=== PATIENT | male | born 1980 | race Caucasian/White ===

== ENCOUNTER 2021-02-11 14:52 | Outpatient (CLI) | payer SELFPAY ==
[2021-02-11 16:09] LABS: Semen Viscosity Not Increased (Not Increa.); Volume Semen 2.5 mL (1.5-5.0)
[2021-02-11 16:10] LABS: Liquefaction Semen Complete in 30 min. (<30 minutes); Semen Color Opaque (Grey-opaque); Semen Immotility 10 %; Semen Morphology Result to Follow; Semen Non-Progressive Motility 10 %; Semen Progressive Motility 80 % (>32); Semen Total Motility 90 (>40% (PM+NP)); Sperm Count 18.7 Mil/mL (60-150 million/mL)
[2021-02-16 19:46] LABS: Fructose, Semen 253 mg/dL (150-600)
== END 2021-02-11 14:53 | disposition home or self-care (01) ==
PROVIDERS: Visit Provider Advanced Practice Midwife
DX: Z30.09 Encounter for other general counseling and advice on contraception (principal)
CPT/HCPCS: 82757; 88160; 89320

== ENCOUNTER 2023-02-07 09:16 | Outpatient (CLI) | payer BC, SELFPAY ==
--- NOTE | 2023-03-01 14:16 | WPDSLEEPSTUD ---
Sleep Study Date of Study: 02/07/23 Ordering Provider: Richard Stone MD Interpreting Physician: Bernadette Goodrich MD Sleep Study Type: Split Polysomnogram Height: 1.8 m Weight: 154.221 kg Body Mass Index: 47.4 Neck Circumference (inches): 20.5 [place]: 5 Reason for Sleep Study Snoring, Sleep History Erick Comer is a 42-year-old man with complaints of snoring and high blood pressure, recently started taking metoprolol. He occasionally awakens from sleep feeling short of breath. He o occasionally wakes at night with heartburn, belching or coughing.??He constant snores, and constantly snores loudly enough that others complain. He occasionally has trouble sleeping when he has a cold. He never wakes up gasping for breath during the night. He rarely has breathing problems at night. He occasional sweats excessively at night. He occasionally notices his heart pounding or beating irregularly during the night. He rarely falls asleep during the day. He rarely falls asleep involuntarily, never falls asleep while driving. He never experiences loss of muscle tone with strong emotion. He never has daytime difficulty at work due to excessive sleepiness, he is a senior mobile developer. He never feels paralyzed on waking or falling asleep. He never experiences vivid dreams upon waking or falling asleep. He never feels afraid of going to sleep. He never has nightmares. He rarely recalls his dreams. He occasionally has thoughts racing through his mind. He occasional feels sad or depressed. He occasionally feels anxiety. He occasionally notices parts of his body jerking. He occasionally kicks during the night. He occasionally feels crawling or aching feelings in his legs. He rarely feels leg pain at night. He never has morning jaw pain, never grinds his teeth at night. He rarely feels bothered by pain during the day, never awakened by pain during the night. He occasionally wakes up feeling stiff in the morning, and he rarely wakes feeling sore or achy, occasionally awakens with pain in his neck, spine, or joints. Normal bedtime is between 10:00 p.m. and 11:00 p.m. falling asleep within 5 minutes, waking between 3 and 4 times during the night to take the dog out, use the bathroom, and is able to return to sleep within 10-20 minutes, sometimes longer. These events occur in the line staker hours. His normal wake time is between 7 and 8:00 a.m.. On weekends, bedtime is later, 1 hour, going to bed between 11:00 p.m. and 12 midnight, waking between 8:00 a.m. and 9:00 a.m. He does not take naps. A short nap lasting 10-15 minutes is not refreshing. Sometimes he feels refreshed on waking. He feels better in the afternoon compared to other times of day. Habits:??Tobacco: He uses E-cigarettes daily. Caffeine: 32 oz a day. Alcohol: 10-15 alcoholic beverages per week. Recreational substances: marijuana, 0.5 g per day. [facility] Past Medical History Medical History Claustrophobia Essential (primary) hypertension Vitamin B12 deficiency Vitamin D deficiency Surgical History Surgical History History of appendectomy (~2002) Status post incision and drainage (~06/2018) incision and drainage of perianal abscess Family History Family History Other Family history of Alzheimer's disease Family history of cardiovascular disease Social History Social History Smoking status: Current every day smoker Tobacco type: e-cigarettes/vaping Smoking end date: 05/14/12 Alcohol intake: current Substance use: current Substance use type: marijuana Lack of Transportation: No Lack of Food: Never True Current Housing: I Do Not Have Housing Concerned About Future Housing: No Difficulty Paying Gas/Electric Bills: No Difficulty
[2023-03-01 14:37] VITALS: BMI 47.4
== END 2023-02-08 07:20 | disposition home or self-care (01) ==
LOC: ANHCSM 09:17
PROVIDERS: PCP Family Medicine; Visit Provider Family Medicine
DX: R40.0 Somnolence (principal); G47.33 Obstructive sleep apnea (adult) (pediatric)
CPT/HCPCS: 95811

== ENCOUNTER 2024-04-22 01:04 | Day surgery (SDC) | payer BC, SELFPAY ==
[2024-04-09 11:13] VITALS: BMI 48.2
[2024-04-22 07:24] VITALS: BP 131/77; PULSE 84; RESP 20; TEMP 36.2; O2SAT 97
[2024-04-22] MEDS: LACTATED RINGERS 1,000 ML 150 ML IV CONT (07:33)
--- NOTE | 2024-04-22 08:30 | PM.IMHP ---
H&P: HPI History of Present Illness Date/Time: 04/22/24 08:30 Chief Complaint: screening for colorectal cancer Narrative: this is a 44-year-old man who presents for colonoscopy. He has never had a colonoscopy before. He denies any hematochezia or melena. He denies family history of colon cancer. Review of Systems Review of Systems: All systems reviewed & are unremarkable except as noted in HPI and below Constitutional: Constitutional: Denies chills, Denies fever(s), Denies headache(s) and Denies weight loss Eyes: Eyes: Denies change in vision ENT: Denies dizziness, Denies headache(s), Denies neck mass and Denies throat swelling Cardiovascular: Cardiovascular: Denies chest pain, Denies lightheadedness and Denies dyspnea Respiratory: Respiratory: Denies cough, Denies dyspnea and Denies wheezing Gastrointestinal: Gastrointestinal: Denies abdominal pain, Denies change in bowel habits, Denies nausea and Denies vomiting Genitourinary: Genitourinary: Denies hematuria and Denies dysuria Musculoskeletal: Musculoskeletal: Reports as per HPI Integumentary/Breasts: Skin/Breast: Reports as per HPI Neurologic: Denies dizziness and Denies headache(s) Allergic/Immunologic: Allergic/Immunologic: Denies throat swelling and Denies wheezing PMFSH Past Medical History Medical History Claustrophobia Encounter for vaccination Essential (primary) hypertension Morbid obesity with BMI of 45.0-49.9, adult Obstructive sleep apnea Pain, foot, right, chronic Poison sophy Vitamin B12 deficiency Vitamin D deficiency Surgical History Surgical History History of appendectomy (~2002) Status post incision and drainage (~06/2018) incision and drainage of perianal abscess Family History Family History Other Family history of Alzheimer's disease Family history of cardiovascular disease Social History Social History Smoking status: Current every day smoker Tobacco type: e-cigarettes/vaping Smoking end date: 05/14/12 Alcohol intake: current Drinks per week: 14 Substance use: current Substance use type: marijuana Other substance usage details: Smokes Last use: 04/09 Lack of Transportation: No Lack of Food: Never True Current Housing: I Do Not Have Housing Concerned About Future Housing: No Difficulty Paying Gas/Electric Bills: No Difficulty Paying for Meds: No Currently Unemployed: No Education: Bachelor's Degree Difficulty w/ Childcare or Family Care: No Living arrangements: with family Additional living arrangements comments: Occupation/Education: occupation Gender identity (if verbalized by the patient): Male Sexual Orientation (if Verbalized by the Patient): Straight or Heterosexual Agree to blood products: Yes Meds Home Medications and Allergies Home Medications ?Medication ?Instructions ?Recorded ?Confirmed ?Type hydroxyzine HCl 25 mg tablet 25 mg PO TID PRN anxiety #30 tabs 01/22/23 04/09/24 Rx cyanocobalamin (vitamin B-12) 1,000 mcg sublingual DAILY #90 tabs 02/12/23 04/22/24 Rx 1,000 mcg sublingual tablet CPAP and supplies #1 ea 03/15/23 04/09/24 Rx cholecalciferol (vitamin D3) 50 50 mcg PO DAILY 01/28/24 04/22/24 History mcg (2,000 unit) tablet losartan 100 1 tablet PO DAILY #90 tabs 03/14/24 04/22/24 Rx mg-hydrochlorothiazide 25 mg tablet metoprolol succinate 100 mg 100 mg PO DAILY #90 tabs 04/07/24 04/22/24 Rx tablet,extended release 24 hr Allergies Allergy/AdvReac Type Severity Reaction Status Date / Time No Known Allergies Allergy Verified 04/09/24 11:04 Vital Signs Vital Signs - 24 hr 04/22/24 07:24 Temperature 97.1 F L Pulse Rate 84 Respiratory Rate 20 Blood Pressure 131/77 Pulse Oximetry 97 Oxygen Delivery Room Air Exam Const: General: no acute distress and alert Orientation/consciousness: patient oriented x3 HENMT: Head: normocephalic and atraumatic Ears: hearing grossly normal bilaterally Face/Nose/Sinus: Normal nares present Mouth: Yes Normal oral and palatal mucosa present Eyes: Periorbital: periorbital findings normal Sclera: sclerae normal EOM: EOMs intact bilaterally Neck: Neck: normal visual inspection, no lymphadenopathy and trachea midline Chest: Chest palpation & inspection: normal inspection of the chest Resp: Effort & Inspection: normal respiratory effort Auscultation: clear to auscultation bilaterally Cardio: Jugular venous distension: no JVD Rate: regular rate Rhythm: regular rhythm Heart sounds: S1 normal heart sound present and S2 normal heart sound present Peripheral pulses: Peripheral pulses 2+ throughout GI: Inspection: normal to inspection GI Palp: Yes Soft to palpation, No Tenderness to palpation present (GI), No Guarding due to palpation present (GI) and No Rebound tenderness present Percussion: Yes normal to percussion Auscultation: normal bowel sounds : General: Yes no CVA tenderness Back/Spine/Pelvis: Back: no CVA tenderness Neuro: General: patient oriented x3, no focal motor deficits and CN's II-XI intact bilaterally Cognition (Neuro): normal cognition Speech: normal speech Motor exam (neuro): 5/5 motor strength present throughout Extrem: General: capillary refill normal and no clubbing, cyanosis or edema Assessment and Plan Assessment and plan (1) Screening for colorectal cancer: Code(s): Z12.11 - Encounter for screening for malignant neoplasm of colon; Z12.12 - Encounter for screening for malignant neoplasm of rectum Status: Acute Assessment and Plan: I have recommended colonoscopy. I have discussed the procedure, risks, benefits, and alternatives. Questions were answered. Patient is agreeable to proceed.
--- NOTE | 2024-04-22 08:34 | P.PNAN_ITS ---
Anes - Initial Pre Proc Eval Procedure: Operation Date: 04/22/24 08:30 Proposed Procedures p Screening Colonoscopy - Ed Mitchell DO Date/Time: 04/22/24 08:34 Surgeon: Ed Mitchell DO Pre Op Diagnosis: Screening for malignant neoplasm of colon Patient Data Age: 44 Gender: M Height: 1.8 m Weight: 155.7 kg Last Vital Signs Temp 36.2 C L 04/22/24 07:24 Pulse 84 04/22/24 07:24 Resp 20 04/22/24 07:24 BP 131/77 04/22/24 07:24 Pulse Ox 97 04/22/24 07:24 O2 Del Method Room Air 04/22/24 07:24 Allergies Allergy/AdvReac Type Severity Reaction Status Date / Time No Known Allergies Allergy Verified 04/09/24 11:04 Home Medications ?Medication ?Instructions ?Recorded ?Confirmed ?Type hydroxyzine HCl 25 mg tablet 25 mg PO TID PRN anxiety #30 tabs 01/22/23 04/09/24 Rx cyanocobalamin (vitamin B-12) 1,000 mcg sublingual DAILY #90 tabs 02/12/23 04/22/24 Rx 1,000 mcg sublingual tablet CPAP and supplies #1 ea 03/15/23 04/09/24 Rx cholecalciferol (vitamin D3) 50 50 mcg PO DAILY 01/28/24 04/22/24 History mcg (2,000 unit) tablet losartan 100 1 tablet PO DAILY #90 tabs 03/14/24 04/22/24 Rx mg-hydrochlorothiazide 25 mg tablet metoprolol succinate 100 mg 100 mg PO DAILY #90 tabs 04/07/24 04/22/24 Rx tablet,extended release 24 hr Patient hx anesthesia problems: none Family hx anesthesia problems: none Results Review: All pre-operative results and documents have been reviewed as part of the pre- operative evaluation. [facility] Past Medical History Medical History Morbid obesity with BMI of 45.0-49.9, adult Encounter for vaccination Pain, foot, right, chronic Poison sophy Obstructive sleep apnea Vitamin B12 deficiency Vitamin D deficiency Claustrophobia Essential (primary) hypertension Surgical History Surgical History Status post incision and drainage (~06/2018) incision and drainage of perianal abscess History of appendectomy (~2002) Family History Family History Other Family history of Alzheimer's disease Family history of cardiovascular disease Social History Social History Smoking status: Current every day smoker Tobacco type: e-cigarettes/vaping Smoking end date: 05/14/12 Alcohol intake: current Drinks per week: 14 Substance use: current Substance use type: marijuana Other substance usage details: Smokes Last use: 04/09 Lack of Transportation: No Lack of Food: Never True Current Housing: I Do Not Have Housing Concerned About Future Housing: No Difficulty Paying Gas/Electric Bills: No Difficulty Paying for Meds: No Currently Unemployed: No Education: Bachelor's Degree Difficulty w/ Childcare or Family Care: No Living arrangements: with family Additional living arrangements comments: Occupation/Education: occupation Gender identity (if verbalized by the patient): Male Sexual Orientation (if Verbalized by the Patient): Straight or Heterosexual Agree to blood products: Yes Anes - Eval Final PreProcedure Day of Procedure 04/22/24 08:34 Patient weight: morbidly obese Heart: regular rate and rhythm Lungs: clear to auscultation Airway: Mallampati scale class II Neurological: alert and oriented Last oral intake: >/= 8 hours ASA classification: III Emergent: no Anesthetic plan: proceed Anesthesia type and monitoring: general GIVS and standard monitoring Results Review: All pre-operative results and documents have been reviewed as part of the pre- operative evaluation. Informed Consent: The patient's anesthetic plan and its attendant risks and benefits were discussed with the patient/family/POA. Questions were solicited and answers provided to the satisfaction of the patient/family/POA.
[2024-04-22 09:24] VITALS: BP 127/77; PULSE 77; RESP 22; O2SAT 97
[2024-04-22 09:34] VITALS: BP 128/77; PULSE 75; RESP 15; O2SAT 100
[2024-04-22 09:44] VITALS: BP 140/99; PULSE 74; RESP 18; O2SAT 100
== END 2024-04-22 09:52 | disposition home or self-care (01) ==
PROVIDERS: PCP Family Medicine; Visit Provider Surgery
PROC: 0DJD8ZZ Inspection of Lower Intestinal Tract, Via Natural or Artificial Opening Endoscopic (ICD-10-PCS; CPT 45378; principal; 2024-04-22 08:30)
DX: Z12.11 Encounter for screening for malignant neoplasm of colon (principal); D12.0 Benign neoplasm of cecum; D12.2 Benign neoplasm of ascending colon; I10 Essential (primary) hypertension; E53.8 Deficiency of other specified B group vitamins; E55.9 Vitamin D deficiency, unspecified; G47.33 Obstructive sleep apnea (adult) (pediatric); F40.240 Claustrophobia; F17.290 Nicotine dependence, other tobacco product, uncomplicated; F12.90 Cannabis use, unspecified, uncomplicated; E66.01 Morbid (severe) obesity due to excess calories; Z68.42 Body mass index [BMI] 45.0-49.9, adult; Z99.89 Dependence on other enabling machines and devices; Z98.890 Other specified postprocedural states; Z82.49 Family history of ischemic heart disease and other diseases of the circulatory system
CPT/HCPCS: 45380; 88305; J2003; J2704; J7120